=== PATIENT | male | born 1980 | race Caucasian/White ===

== ENCOUNTER 2018-09-19 09:42 | Inpatient (IN) | payer OTHER ==
[2018-09-19] MEDS ORDERED: NS 1,000 ML IV ONE (09:51)
--- NOTE | 2018-09-19 10:23 | EDPHY ---
H & P Stated Complaint: n/v/d since 09/13. Time Seen by Provider: 09/19/18 09:51 HPI/ROS: CHIEF COMPLAINT: Dizziness, bloody diarrhea History by patient HISTORY OF PRESENT ILLNESS: 38-year-old man with no significant medical history presents complaining of persistent bloody diarrhea x3 weeks. Patient was referred in from the GI clinic because of concerns of dehydration and electrolyte abnormalities. Last night when the patient got up to go to the bathroom he was so dizzy he fell. He is not sure if he lost consciousness. He has been feeling very dizzy this morning however this has currently resolved. Patient states that 3 weeks ago he began having bloody diarrhea and he saw his primary care physician who did stool studies. He was started on Flagyl which he said made him developed nausea and vomiting which she had not had before. He has taken a week the Flagyl with no change in his symptoms. Because of the vomiting and diarrhea he had to go to the ER 5 days ago which time they did abdominal CT scan which showed colitis. Today the patient went in to see GI specialist that he has an appointment for a colonoscopy pending in 2 days. He continues to have persistent bloody diarrhea more times than he can count. He is able to eat and drink. He has lost 20 lb over the past 3 weeks. There is no family history of inflammatory bowel disease. He denies any abdominal pain. Since he stopped Flagyl his nausea vomiting has resolved. REVIEW OF SYSTEMS: As in HPI, and all other systems reviewed and are negative Source: Patient - Personal History Current Tetanus/Diphtheria Vaccine: Unsure Current Tetanus Diphtheria and Acellular Pertussis (TDAP): Unsure - Medical/Surgical History Other PMH: denies - Social History Smoking Status: Former smoker - Physical Exam Exam: General Appearance: Alert, nontoxic-appearing. Eyes: Pupils equal and round, extraocular movements intact, no pallor or injection. Mouth: Mucous membranes moist. Pharynx clear Respiratory: Normal, effort, lungs are clear to auscultation. No wheezes, rales or rhonchi. Cardiovascular: Regular rate and rhythm. S1, S2, no murmurs, gallops or rubs appreciated Gastrointestinal: bowel sounds decreased, Abdomen is soft and nondistended nontender, no masses Back: No CVA tenderness, no bony tenderness Neurological: Awake, alert and oriented x 3, no pronator drift, normal gait, no pronator drift Skin: Warm and dry, no rashes. Musculoskeletal: No deformities or tenderness. Extremities: full range of motion, no edema Psychiatric: Patient has normal affect, there is no agitation. Constitutional: Initial Vital Signs Temperature (C) 36.5 C 09/19/18 09:49 Heart Rate 92 09/19/18 09:49 Respiratory Rate 16 09/19/18 09:49 Blood Pressure 117/83 H 09/19/18 09:49 O2 Sat (%) 99 09/19/18 09:49 O2 Delivery Mode Room Air Allergies/Adverse Reactions: No Known Allergies Allergy (Unverified 09/19/18 09:53) Home Medications: Medication Instructions Recorded Flagyl 09/19/18 Metoclopramide 09/19/18 Ondansetron Odt 09/19/18 Potassium Chloride 09/19/18 Promethazine HCl 09/19/18 Medical Decision Making - Diagnostics EKG Interpretation: Normal sinus rhythm at a rate in 91 with normal axis, prolonged QT, inverted T- waves in the inferior leads and U waves present. Impression: Abnormal EKG. ED Course/Re-evaluation: 38-year-old male in with ongoing bloody diarrhea. I reviewed the patient's old records. His stool studies were positive for entamoeba. Patient did have a trip to [place] complicated by diarrhea for months ago in May. He was given IV fluids and labs were checked. Labs are notable for low potassium of 1.8. CBC and magnesium level were sent to [facility] and is pending at time of dictation. Patient was started on IV and oral potassium repletion. An ECG was done which showed normal sinus rhythm at a rate in 91 with prolonged QT, inverted T-waves in the inferior leads and U-waves. Given EKG findings magnesium repletion was ordered while awaiting magnesium results. Patient be transferred to [facility] for ongoing electrolyte repletion and further evaluation. I discussed the case with MILLER Magana, on-call for the hospitalist. While awaiting ambulance transport magnesium results came back at 2.3 which is normal. Magnesium infusion was stopped. - Data Points Laboratory Results: Laboratory Results 09/19/18 10:00 09/19/18 09/19/18 09/19/18 10:48 10:26 10:00 WBC RBC Hgb POC Hgb 16.7 gm/dL gm/dL (13.7-17.5) Hct POC Hct 49 % % (40-51) MCV MCH MCHC RDW Plt Count POC Sodium 132 mEq/L L mEq/L 133 mEq/L L mEq/L (135-145) (135-145) POC Potassium < 2.0 mEq/L L* mEq/L 1.8 mEq/L L* mEq/L (3.3-5.0) (3.3-5.0) POC Chloride 88 mEq/L L mEq/L 88.0 mEq/L L mEq/L (97-110) (97-110) POC Total CO2 29 mEq/L mEq/L (22-31) POC BUN 4 mg/dL L mg/dL 5 mg/dL L mg/dL (7-23) (7-23) POC Creatinine 0.8 mg/dL mg/dL 1.1 mg/dL mg/dL (0.7-1.3) (0.7-1.3) POC Glucose 97 mg/dL mg/dL 101 mg/dL H mg/dL (70-100) (70-100) POC Calcium 8.6 mg/dL mg/dL (8.5-10.4) Magnesium 2.3 mg/dL mg/dL (1.6-2.3) 09/19/18 10:00 WBC 18.12 10^3/uL H 10^3/uL (3.80-9.50) RBC 5.13 10^6/uL 10^6/uL (4.40-6.38) Hgb 15.8 g/dL g/dL (13.7-17.5) POC Hgb Hct 43.5 % % (40.0-51.0) POC Hct MCV 84.8 fL fL (81.5-99.8) MCH 30.8 pg pg (27.9-34.1) MCHC 36.3 g/dL g/dL (32.4-36.7) RDW 12.5 % % (11.5-15.2) Plt Count 642 10^3/uL H 10^3/uL (150-400) POC Sodium POC Potassium POC Chloride POC Total CO2 POC BUN POC Creatinine POC Glucose POC Calcium Magnesium Medications Given: Potassium Chloride (Potassium Cl 10 Meq (Premix)) 100 mls @ 100 mls/hr IV EDNOW ONE Stop: 09/19/18 11:56 Last Admin: 09/19/18 11:09 Dose: 100 mls Magnesium Sulfate/Dextrose (Magnesium Sulf 1 Gm (Premix)) 100 mls @ 100 mls/hr IV EDNOW ONE Stop: 09/19/18 11:57 Last Admin: 09/19/18 11:33 Dose: 100 mls Discontinued Medications Sodium Chloride (Ns) 1,000 mls @ 0 mls/hr IV EDNOW ONE; Wide Open PRN Reason: Protocol Stop: 09/19/18 09:52 Last Admin: 09/19/18 10:07 Dose: 1,000 mls Potassium Chloride (Potassium Chloride Oral Liquid) 20 meq PO EDNOW ONE Stop: 09/19/18 11:04 Last Admin: 09/19/18 11:39 Dose: 20 meq Point of Care Test Results: Chemistry 09/19/18 09/19/18 10:48 10:26 POC Sodium 132 mEq/L L mEq/L 133 mEq/L L mEq/L (135-145) (135-145) POC Potassium < 2.0 mEq/L L* mEq/L 1.8 mEq/L L* mEq/L (3.3-5.0) (3.3-5.0) POC Chloride 88 mEq/L L mEq/L 88.0 mEq/L L mEq/L (97-110) (97-110) POC Total CO2 29 mEq/L mEq/L (22-31) POC BUN 4 mg/dL L mg/dL 5 mg/dL L mg/dL (7-23) (7-23) POC Creatinine 0.8 mg/dL mg/dL 1.1 mg/dL mg/dL (0.7-1.3) (0.7-1.3) POC Glucose 97 mg/dL mg/dL 101 mg/dL H mg/dL (70-100) (70-100) POC Calcium 8.6 mg/dL mg/dL (8.5-10.4) ISTAT H&H 09/19/18 10:48 POC Hgb 16.7 gm/dL gm/dL (13.7-17.5) POC Hct 49 % % (40-51) Departure - Departure Disposition: [facility] Inpatient Acute Clinical Impression: Hypokalemia due to loss of potassium, Acute dehydration, Prolonged QT interval Diarrhea Qualifiers: Diarrhea type: unspecified type Qualified Code(s): R19.7 - Diarrhea, unspecified Condition: Fair
[2018-09-19] MEDS ORDERED: POTASSIUM Cl (KCl) 50 ML IV ONE ×2 (10:45→10:46)
[2018-09-19] MEDS ORDERED: POTASSIUM Cl (KCl) 100 ML IV ONE ×2 (10:57)
[2018-09-19] MEDS ORDERED: MAGNESIUM SULF 1 GM/DEXTROSE 100 ML IV ONE (10:58)
[2018-09-19] MEDS ORDERED: NS 1,000 ML IV SCH (11:00)
[2018-09-19] MEDS ORDERED: POTASSIUM CL 20 MEQ/15 ML UDCUP PO ONE ×2 (11:03→22:15)
[2018-09-19] MEDS ORDERED: PROTOCOL POTASSIUM 1 DOSE MISC PRN (13:31)
[2018-09-19] MEDS ORDERED: PROMETHAZINE HCL 25 MG/ML INJ IVP PRN (15:09)
[2018-09-19] MEDS ORDERED: ACETAMINOPHEN 325 MG TAB PO PRN (15:09)
[2018-09-19] MEDS ORDERED: POTASSIUM CL 10 MEQ TAB PO ONE (15:47)
--- NOTE | 2018-09-19 15:49 | GHP ---
DATE OF ADMISSION: 09/19/2018 CHIEF COMPLAINT: Bloody diarrhea and syncope. HISTORY: The patient is a 38-year-old male, who had acute onset of bloody diarrhea on September 03. He was seen in an emergency room 5 days ago and had a CT scan of the abdomen that showed colitis. A GI PCR panel was sent showing amoeba but C difficile is negative. He was scheduled for colonoscopy with GI in 2 days and was seen in the GI clinic today for followup. The GI physician felt he was ext remely ill and sent him to the emergency room. He is very dehydrated and dizzy. He has 20-30 bloody bowel movements per day. It is worse at night. He has abdominal cramping with the stools. He took a course of Flagyl, was only able tolerate 6 days of antibiotic, and it was actually making him wors e so he quit it. Last night, he had a full-on syncopal event witnessed by his . This was accomp anied by an episode of stool incontinence. He traveled to [place] in May and did get a transient GI bug during that trip, but this was nonbloody and had completely resolved prior to the current onset o f symptoms. PAST MEDICAL HISTORY: Negative. MEDICATIONS: Please see computer record for full detailed list. ALLERGIES: No known drug allergies. SOCIAL HISTORY: He does chew tobacco but has stopped since onset of illness. Also drinks 6 beers ev but has also not recently been doing that due to his current illness. He works for a [employer]. He lives with his . REVIEW OF SYSTEMS: Complete review of systems obtained. Review of systems negative regarding consti tutional, HEENT, GI, pulmonary, cardiovascular, , hematology, skin, musculoskeletal, endocrine, psy ch, except for positives and negatives as noted in HPI. FAMILY HISTORY: Negative for IBD. PHYSICAL EXAMINATION: GENERAL: Well-developed, well-nourished male, in no acute distress. VITAL SI GNS: Temperature is 36.8, pulse 72, blood pressure 111/72, saturating 95% on room air. EYES: Sabina l conjunctivae. Pupils equal and react to light. ENT: Normal ears and nose. Hearing intact. Norm al teeth. Oropharynx moist. NECK: Trachea midline. No thyromegaly. CHEST: Normal respiratory ef fort. Lungs clear to bilaterally. CARDIOVASCULAR: Regular rhythm. No murmur. No extremity edema. ABDOMEN: Soft, nontender. No hepatosplenomegaly. SKIN: Warm, dry, intact, without rash. MUSCUL OSKELETAL: No cyanosis or clubbing. Strength 5/5 upper and lower extremities. NEURO: Cranial nerv es intact. Normal sensation to light touch. PSYCHIATRIC: Alert and oriented x3. Normal mood and a ffect. Normal judgment and insight. Normal memory. LABORATORY DATA: White count 18.12, hematocrit 43.5, platelets 642. Sodium 132, potassium 1.8, chlo ride 88, bicarb 29, BUN 4, creatinine 0.8, glucose 97. Magnesium is 2.3. EKG viewed by me: My personal interpretation is normal sinus rhythm. QTc is 557 with U waves. This case was personally discussed with Dr. Dave Yancey and Dr. Huy Arnett regarding infectious diseas e and GI workup that is undergoing. ASSESSMENT/PLAN: 1. Colitis with bloody diarrhea. Stool sample from September 11 is positive for amoeba. I have spo yvonne with Dr. Arnett. Infectious Disease will see him in consultation. If this is not felt to be a pat hogenic finding, then Dr. Yancey does plan to proceed with colonoscopy. 2. Critical hypokalemia with electrocardiogram changes. We will follow serial potassiums especially the next 24-48 hours with aggressive repletion until it gets out of the critical range. Will follow on telemetry. 3. Prolonged QT interval. I suspect this is due to his severe electrolyte disturbance. Will rechec k an electrocardiogram in the morning once potassium is improved. 4. Leukocytosis. I suspect this is reactive. We will continue to follow. 5. Syncope. I suspect this is due to a combination of hypovolemia, vagal response, and he may have also had an arrhythmia due to his hypokalemia. Treatment will be supportive will continue to watch o n the monitor as above. CODE STATUS: Full. ADMISSION STATUS: We will admit to observation and reevaluate tomorrow regarding ongoing need for ho spitalization. DEEP VEIN THROMBOSIS PROPHYLAXIS: He is low risk for DVT and high risk for worsening bleeding, so we will prescribe early ambulation. /[id number]/MODL
[2018-09-19] MEDS: ONDANSETRON 4 MG/2 ML VIAL IVP PRN (16:11)
[2018-09-19] MEDS ORDERED: POTASSIUM CL 20 MEQ TAB PO ONE (21:49)
[2018-09-20] MEDS: POTASSIUM Cl (KCl) 40 MEQ in NS 1,000 ML IV SCH (02:17)
[2018-09-20 04:29] LABS: PLATELET COUNT 447 10^3/uL (150-400)
--- NOTE | 2018-09-20 06:19 | GCON ---
INFECTIOUS DISEASE CONSULTATION DATE OF CONSULTATION: 09/19/2018 REFERRING PHYSICIAN: Yanna Vines MD REASON FOR CONSULTATION: Bloody diarrhea with concerns for amoebic dysentery. HISTORY OF PRESENT ILLNESS: The patient is a 38-year-old male without significant past medical history, who I am asked to see in consultation for bloody diarrhea with concern for amoebic dysentery. The patient developed onset of bloody diarrhea beginning on September 03. The patient had multiple episodes of bloody diarrhea with crampy abdominal pain. He did not have significant fever or chills other than he did awake in the night 1 time with a cold sweat suggesting subjective fever. This was not a continuous phenomena. The patient was evaluated by his primary care physician on 09/11/2018. At that time, white blood cell count was elevated at 14.5. Stool O and P were performed with direct specimen being concerning for presence of Entamoeba species; this was not confirmed on Trichrome staining. The same day, a stool pathogen panel by PCR testing was performed, which showed no organisms; this PCR panel includes Entamoeba histolytica. The patient subsequently received treatment with metronidazole which was associated with significant nausea and vomiting, and did not lead to any improvement in his bloody diarrhea. He discontinued this after 6 days due to intolerance related to ongoing nausea and vomiting. He was seen in the [facility] Emergency Department on 09/14/2018, at which point in time a CT scan of the abdomen and pelvis was performed, which showed findings consistent with colitis with normal-appearing small bowel. He does believe he has also had mucus in the stool. The patient had traveled to [facility] in May and did have traveler's diarrhea while there. Yesterday, his diarrhea was occurring approximately 20 times per day. He was not tolerating oral intake well and had a syncopal event. Plans were in place for colonoscopy in 2 days, but in his followup today, he was felt to need further evaluation based on signs and symptoms of dehydration and recent syncopal episode. In the emergency department today, he was noted to have significant hypokalemia with a potassium of 1.8 at time of presentation. This is now improved to 2.9. Earlier today and Entamoeba Histolytica antigen was performed. Given concerns about increased risk of perforation if colonoscopy is performed with amoebic colitis, I have been asked to see the patient to assist in his ongoing management. PAST MEDICAL HISTORY: Unremarkable. PAST SURGICAL HISTORY: Tonsillectomy. CURRENT MEDICATIONS: Potassium replacement, IV rehydration, Phenergan as needed , Zofran as needed. ALLERGIES: No known drug allergies. SOCIAL HISTORY: The patient typically chews tobacco. He drinks a six-pack on the weekends. No drug use. He works in a desk based job. No travel outside of prior trip to [place]. No ill contacts. The patient denies any HIV risk factors. FAMILY HISTORY: Unremarkable. No family history of inflammatory bowel disease. REVIEW OF SYSTEMS: Outside that noted in the HPI, the remainder of 10-system review is unremarkable except for significant weight loss associated with the above symptoms. No history of eye pain or redness; no history of oral ulcerations. PHYSICAL EXAMINATION: VITAL SIGNS: Temperature 37.2, heart rate 100, respiratory rate 18, blood pressure 109/66, oxygen saturation 99% on room air. GENERAL: Patient is a thin male in no acute distress. He appears nontoxic. HEENT: There is no scleral icterus, conjunctival injection, or conjunctival petechiae. Oropharynx shows slightly dry mucous membranes. No oral ulcerations present. No nasal discharge. No tenderness over the sinuses. NECK : Supple, without palpable lymphadenopathy or thyromegaly. CHEST: Clear to auscultation bilaterally without adventitious sounds. Respiratory effort is normal. CARDIOVASCULAR: Tachycardic, without murmurs, gallops, or rubs. ABDOMEN: Soft, nontender, nondistended. Bowel sounds are present. No palpable organomegaly. MUSCULOSKELETAL: No cyanosis, clubbing, or edema. SKIN : No rashes present. No stigmata of endocarditis. Skin is warm and dry to touch. NEUROLOGIC: The patient is alert and interacts appropriately with examiner. Cranial nerves 2-12 are grossly intact. Sensation is grossly intact. Muscle tone and bulk are normal. LABORATORY DATA: White blood cell count 18.1, hematocrit 43.5, platelets 642, serum creatinine 0.8, potassium 2.9, bicarbonate 29, AST 15, ALT 37, bilirubin 0.9, alkaline phosphatase 64, stool O and P from 09/11/2018, as previously outlined; stool O and P from today is pending. Entamoeba Histolytica antigen is pending. IMPRESSION: Bloody diarrhea: The patient has bloody diarrhea now for approximately 2.5 weeks, which did not improve with treatment of metronidazole. Amoeba seen on ova and parasites are not diagnostic of amoebic colitis/ dysentery given ova and parasites typically cannot distinguish between pathogenic and non-pathogenic amoeba unless red blood cells are being in correction are seen being ingested. Given the patient's negative stool PCR test for Entamoeba Histolytica, suspect this was likely a non-pathogenic variety as the sensitivity of PCR should be higher than ova and parasites. Recommend repeating stool pathogen PCR at this point in time to ensure Entamoeba Histolytica PCR remains negative and no other pathogens isolated ( Entamoeba Histolytica antigen will take a longer amount of time when compared to gastrointestinal pathogen PCR testing). If Entamoeba Histolytica PCR is negative, I think can proceed with colonoscopy as outlined to assess for other etiologies such as inflammatory bowel disease, which is of consideration given chronicity of symptoms and concomitant thrombocytosis consistent with chronic inflammatory state. Plan observation off antimicrobial therapy. RECOMMENDATIONS: 1. Repeat stool pathogen panel, which includes Entamoeba Histolytica by PCR. 2. Observe off antibiotics. 3. If repeat stool panel is negative in terms of diagnostic etiology including Entamoeba Histolytica, think proceeding with colonoscopy would be next diagnostic step. 4. Follow up repeat stool O and P as available. Thank you for this consultation. We will continue to follow the patient with you. /[id number]/MODL MTDD
[2018-09-20] MEDS ORDERED: POTASSIUM CL 10 MEQ TAB PO ONE ×3 (07:28→23:00)
[2018-09-20] MEDS ORDERED: POTASSIUM CL 20 MEQ/15 ML UDCUP PO ONE (07:45)
[2018-09-20] MEDS ORDERED: PROTOCOL K PHOSPHATE 1 DOSE IV PRN (09:29)
--- NOTE | 2018-09-20 10:50 | GCON ---
REFERRING PHYSICIAN: Yanna Vines MD REASON FOR CONSULTATION: Abdominal pain and bloody diarrhea. CHIEF COMPLAINT: Abdominal pain and bloody diarrhea. HISTORY OF PRESENT ILLNESS: Briefly, the patient is a pleasant 38-year-old male who has no significa nt past medical history who has been admitted to the hospital for evaluation of dysentery. He report s he was in his usual state of health until September 03. On that day developed acute, urgent, blood y, painful diarrhea symptoms. This was associated with some subjective fevers and chills, although h e does not admit to measuring any true documented fever. He reports no sick contacts or unusual food choices. He does have recent travel history to [place], but this was 3 months prior. On August t, of note, he reports he felt totally well. He has had multiple stool and laboratory tests during t he last 2 to 3 week period of time of this illness. There has been some concern for the presence of Entamoeba species. He reports that he has approximately 20-30 bowel movements a day that have been u rgent, loose, and bloody. There is a significant amount of abdominal cramping associated with these symptoms. He denies any nausea, vomiting. He is able to tolerate p.o., but he reports that it leads to significant and rapid recurrence of diarrhea. He has no personal or family history of similar complaints. He denies any personal or family history of inflammatory bowel disease or colon cancer. PAST MEDICAL HISTORY: Unremarkable. PAST SURGICAL HISTORY: Tonsillectomy. OUTPATIENT MEDICINES: None. ALLERGIES: None. SOCIAL HISTORY: He chews tobacco. He drinks alcohol on the weekends. There is no history of drug u se. He had a recent trip to [place], where he did have a brief period of traveler's diarrhea. FAMILY HISTORY: Negative for inflammatory bowel disease. REVIEW OF SYSTEMS: A complete review of systems was undertaken with the patient. The pertinent posi tives and negatives are detailed in the history of present illness. PHYSICAL EXAM: GENERAL: This is a well-developed male in no apparent distress. HEENT: His pupils are equal, round, reactive to light and accommodation. Sclerae are nonicteric. His oropharynx is cl ear. NECK: Supple without lymphadenopathy. HEART: Regular without murmur, normal rate and rhythm. ABDOMEN: Soft with minimal tenderness throughout. He has hyperactive bowel sounds. EXTREMITIES: Free of cyanosis, clubbing, and edema. NEURO: Grossly nonfocal. PSYCH: Normal mood and affect. SKIN: Without lesions. LABORATORY TESTING: White count of 12.5, hemoglobin of 10.6, hematocrit of 29.8, platelet count of 4 47. Sodium of 134, potassium of 3.4, chloride of 105, bicarb of 26, BUN of 4, creatinine of 0.8. St ool testing is currently pending. Outpatient stool testing was negative apart from microscopic exam, which revealed Entamoeba species. IMPRESSION/RECOMMENDATIONS: The patient has had the acute onset of dysentery. The most common etiol ogy for such presentation is infectious. His stool infectious workup has been somewhat equivocal at this point, but they are clues considering Entamoeba. It is also possible that his symptoms could be related to inflammatory bowel disease, ischemic bowel, malignancy, etc. Pending the results of a st ool infectious evaluation, will need to consider endoscopic evaluation. /[id number]/MODL
[2018-09-20] MEDS ORDERED: K PHOS 10 MMOL in D5W 250 ML IV ONE (12:00)
--- NOTE | 2018-09-20 12:15 | ASMTCMCOM ---
CM Note CM Note Notes: Pts case discussed in tx rounds. Pt is a 38 y/o man admitted for hypokalemia, bloodied diarrhea and dehydration. ID and GI are consulting. Needs are TBD at this time. CM to follow. Plan: TBD Date Signed: 09/20/2018 12:15 PM Electronically Signed By:ROBEL Hanson
[2018-09-20] MEDS ORDERED: PEG 3350/NA SULF,BICARB,CL/KCL (GAVILYTE-G) 4000 ML BTL PO ONE (15:28)
--- NOTE | 2018-09-20 15:40 | HOSPPROG ---
Hospitalist Progress Note Assessment/Plan: * Colitis with bloody diarrhea - infectious vs. UC -ruling out infection prior to proceeding with colonoscopy * Amoeba in stool -E. histolytica antigen pending - definitive test -suspect non-pathogenic finding -PCR negative - this is more sensitive than O+P * Acute blood loss anemia -continue to follow H/H * Critical hypokalemia -improved - continue to follow * Prolonged QT -improved with electrolyte repletion * Leukocytosis -reactive * Syncope due to hypovolemia Subjective: severely bad night with persistent bloody diarrhea all night long Objective: Vital Signs Temp Pulse Resp BP Pulse Ox 36.8 C 96 16 93/73 L 100 09/20/18 12:00 09/20/18 12:00 09/20/18 12:00 09/20/18 12:00 09/20/18 12:00 Microbiology 09/19/18 17:39 Gastrointestinal Tract Panel (PCR) - Final Stool No Organism Detected Laboratory Results 09/20/18 03:45 09/20/18 03:45 09/19/18 09/20/18 09/21/18 05:59 05:59 05:59 Intake Total 4300 Balance 4300 EKG viewed, my personal interpretation is - improved QTc tele - NSR - Physical Exam Constitutional: no apparent distress, appears nourished, not in pain Cardiovascular: regular rate and rhythym, no murmur, rub, or gallop Respiratory: no respiratory distress, no rales or rhonchi, clear to auscultation Gastrointestinal: normoactive bowel sounds, soft, non-tender abdomen, no palpable masses Skin: no rashes or abrasions, no fluctuance, no induration Neurologic: AAOx3, sensation intact bilaterally Psychiatric: interacting appropriately, not anxious, not encephalopathic, thought process linear ICD10 Worksheet Patient Problems: Problems Problem Status Onset Hypokalemia due to loss of potassium Acute Acute dehydration Acute Diarrhea Acute Prolonged QT interval Acute
--- NOTE | 2018-09-20 17:08 | PDMN ---
Medical Necessity Medical necessity: Change to inpt as of 09/20/18 @ 1232. Pt meets inpt criteria per MD order and [facility] M-[id number], Gastrointestinal Bleeding, Lower. Pt admitted w/ colitis w/bloody diarrhea, hypokalemia w/EKG changes, leukocytosis, and syncope. Bloody diarrhea persists today, hypotensive 93/73, acute blood loss anemia (H/H 15.8/43.5 yesterday to 10.6/29.8 today). IVF, will likely need colonoscopy, tele monitoring for EKG changes, electrolyte replacement, follow H/ H. Anticipate>2MN for further eval/management of above.
--- NOTE | 2018-09-20 21:22 | CPEKG ---
Test Reason : OPEN Blood Pressure : / mmHG Vent. Rate : 095 BPM Atrial Rate : 096 BPM P-R Int : 146 ms QRS Dur : 078 ms QT Int : 354 ms P-R-T Axes : 070 082 -05 degrees QTc Int : 445 ms Sinus rhythm Nonspecific ST and T wave abnormality Confirmed by Reagan Lyman ([id number]) on 09/20/2018 9:21:51 PM Referred By: Confirmed By:Reagan Lyman
[2018-09-21] MEDS: POTASSIUM Cl (KCl) 40 MEQ in NS 1,000 ML IV SCH (01:49)
[2018-09-21 05:24] LABS: PLATELET COUNT 539 10^3/uL (150-400)
[2018-09-21] MEDS ORDERED: LR 1,000 ML IV ONE (06:41)
--- NOTE | 2018-09-21 08:05 | PDANEPAE ---
ANE History of Present Illness hematachezia, here for colonoscopy ANE Past Medical History - Cardiovascular History Hx Hypertension: No Hx Arrhythmias: No Hx Chest Pain: No Hx Coronary Artery / Peripheral Vascular Disease: No - Pulmonary History Hx Oxygen in Use at Home: No Hx Sleep Apnea: No Sleep Apnea Screening Result - Last Documented: Negative - Endocrine History Hx Diabetes: No ANE Review of Systems Review of Systems: - Exercise capacity Exercise capacity: >=4 METS ANE Patient History - Allergies Allergies/Adverse Reactions: metronidazole [From Flagyl] Allergy (Mild, Unverified 09/19/18 15:16) Other-Enter Comments - Home Medications Home Medications: Metoclopramide 10 mg PO TIDMEAL PRN 09/19/18 [Last Taken 09/17/18] Multivitamins [Multivitamin (*)] 1 each PO DAILY 09/19/18 [Last Taken 09/13/18] Ondansetron [Ondansetron Odt] 8 mg PO Q8H PRN 09/19/18 [Last Taken 09/17/18] Potassium Cl [Klor-Con 20 meq (*)] 10 meq PO DAILY 09/19/18 [Last Taken 09/16/18 ] Promethazine HCl [Phenergan 25mg (*)] 25 mg PO Q6H PRN 09/19/18 [Last Taken 03/30] - NPO status NPO Status: no food or drink >8 hours NPO Since - Liquids (Date): 09/21/18 NPO Since - Liquids (Time): 00:00 NPO Since - Solids (Date): 09/21/18 NPO Since - Solids (Time): 00:00 - Anes Hx Anes Hx: no prior problems - Smoking Hx Smoking Status: Former smoker - Alcohol Use Alcohol Use: Occasionally - Family Anes Hx Family Anes Hx: none ANE Labs/Vital Signs - Labs Result Diagrams: 09/21/18 03:56 09/21/18 03:56 - Vital Signs Blood Pressure: 109/66 Heart Rate: 97 Respiratory Rate: 16 O2 Sat (%): 96 Height: 177.8 cm Weight: 62.142 kg ANE Physical Exam - Airway Neck exam: FROM Mallampati Score: Class 2 Mouth exam: normal dental/mouth exam - Pulmonary Pulmonary: no respiratory distress, clear to auscultation - Cardiovascular Cardiovascular: regular rate and rhythym, no murmur, rub, or gallop - ASA Status ASA Status: I ANE Anesthesia Plan Anesthesia Plan: GA with mask Total IV Anesthesia: Yes
[2018-09-21] MEDS ORDERED: PROPOFOL/EMULSION 500 MG/50 ML BOTTLE IV ONE (08:08)
[2018-09-21] MEDS ORDERED: NALOXONE HCL 0.4 MG/ML INJ IVP PRN (08:25)
--- NOTE | 2018-09-21 08:28 | GIREPORT ---
Formerly [facility] - Endoscopy Department Patient Name: Rudi Jacob Procedure Date: 09/21/2018 7:51 AM Patient Type: Inpatient Attending MD/ ER Physician: Dave Yancey MD Procedure: Colonoscopy Indications: Generalized abdominal pain, Clinically significant diarrhea of unexplai cj origin, Hematochezia Providers: aDve Yancey MD Medicines: Sedation Required Anesthesia Staff Assistance Complications: No immediate complications. Description of Procedure: After obtaining informed consent, the scope was passed under direct vis ion. Throughout the procedure, the patient's blood pressure, pulse, and oxyg en saturations were monitored continuously. The Colonoscope with irrigatio n channel was introduced through the anus and advanced to the cecum, identified by appendiceal orifice and ileocecal valve. The colonoscopy was performed without difficulty. The patient tolerated the procedure well. The quality of the bowel preparation was not adequate to identify polyps 6 mm and larger in size. Findings: Diffuse severe inflammation characterized by congestion (edema), erosio ns, erythema, friability, granularity and confluent ulcerations was found i n the entire colon. Biopsies were taken with a cold forceps for histology. Estimated Blood Loss: Estimated blood loss: none. Post Op Diagnosis: - Preparation of the colon was inadequate. - Diffuse severe inflammation was found in the entire examined colon consistent with ulcerative colitis. Biopsied. Recommendation: - Return patient to hospital [facility] for ongoing care. - Await pathology results. - Given negative stool infectious work-up, will start empiric IBD thera py with IV solumedrol and oral mesalamine. Attending Participation: I personally performed the entire procedure. Dave Yancey MD Dave Yancey MD 09/21/2018 8:28:34 AM This report has been signed electronicallyDaus Bc MD Number of Addenda: 0 Note Initiated On: 09/21/2018 7:51 AM Total Procedure Duration Time 0 hours 11 minutes 16 seconds [email or web address]
--- NOTE | 2018-09-21 08:38 | SUROPNOTE ---
[facility] Operative Report - Surgery BRIEF COLON NOTE Indication: hematochezia, diarrhea Medication: per anesthesia Complications: none acutely Findings: - Diffuse, severe, macias colitis - multiple bx's done IMPRESSION/RECS 1. Colitis - DDx is ischemic, inflammatory, infectious - overall suspect IBD, await bx - will start empiric IBD therapy with IV solumedrol and po mesalamine - likely will need another 24-48hrs hospital stay to be sure colitis is improving - will follow, Dr. Caicedo to assume the GI service at 1700 on 09/21/18
--- NOTE | 2018-09-21 09:23 | POSTANESTH ---
Post Anesthetic Evaluation Cardiovascular Status: Normal, Stable, Similar to Pre-Op Cond Respiratory Status: Normal, Stable, Similar to Pre-op Cond. Level of Consciousness/Mental Status: Can Participate in Eval, Alert and Oriented Pain Control: Adequate, Prn Tx Ordered Nausea/Vomiting Control: Adequate, Prn Tx Ordered Complications Possibly Related to Anesthesia: None Noted
[2018-09-21] MEDS: methylPREDNISolone SOD SUCC 40 MG/ML VIAL IVP SCH ×3 (10:14→22:08)
[2018-09-21] MEDS: MESALAMINE 800 MG TAB.DR PO SCH ×3 (10:14→22:07)
[2018-09-21 11:44] LABS: CYCL RESULT See Comments
--- NOTE | 2018-09-21 11:47 | ASMTCMCOM ---
CM Note CM Note Notes: Pts case discussed in tx rounds. Pt had a colonoscopy this AM. Pt most likely has ulcerative colitis. Awaiting from final results for a definitive diagnosis. Pt will be prescribed steroids to help w/ symptom management. Pt will most likely d/c independent when medically stable. No therapies ordered at this time. CM available for changes. Plan: Independent Date Signed: 09/21/2018 11:46 AM Electronically Signed By:ROBEL Hanson
--- NOTE | 2018-09-21 16:06 | HOSPPROG ---
Hospitalist Progress Note Assessment/Plan: * Colitis with bloody diarrhea - colonoscopy most c/w new diagnosis UC - biopsies pending -IV steroids + mesalamine * Amoeba in stool -suspect non-pathogenic finding -PCR negative - this is more sensitive than O+P * Acute blood loss anemia -continue to follow H/H * Critical hypokalemia -improved - continue to follow * Prolonged QT -improved with electrolyte repletion * Leukocytosis -reactive * Syncope due to hypovolemia Subjective: Finally better today Objective: Vital Signs Temp Pulse Resp BP Pulse Ox 36.8 C 106 H 16 111/64 96 09/21/18 15:37 09/21/18 15:37 09/21/18 15:37 09/21/18 15:37 09/21/18 15:37 Laboratory Results 09/21/18 03:56 09/21/18 03:56 09/20/18 09/21/18 09/22/18 05:59 05:59 05:59 Intake Total 4050 895 Balance 4050 895 GI report reviewed from colonscopy - severe diffuse colitis c/w UC case d/w Dr. Angelina Mclean ID - this is not infectious colitis - Physical Exam Constitutional: no apparent distress, appears nourished, not in pain Cardiovascular: regular rate and rhythym, no murmur, rub, or gallop Respiratory: no respiratory distress, no rales or rhonchi, clear to auscultation Gastrointestinal: normoactive bowel sounds, soft, non-tender abdomen, no palpable masses Skin: no rashes or abrasions, no fluctuance, no induration Neurologic: AAOx3, sensation intact bilaterally Psychiatric: interacting appropriately, not anxious, not encephalopathic, thought process linear ICD10 Worksheet Patient Problems: Problems Problem Status Onset Hypokalemia due to loss of potassium Acute Acute dehydration Acute Diarrhea Acute Prolonged QT interval Acute
[2018-09-22 04:49] LABS: PLATELET COUNT 529 10^3/uL (150-400)
[2018-09-22] MEDS: methylPREDNISolone SOD SUCC 40 MG/ML VIAL IVP SCH ×3 (06:42→21:55)
[2018-09-22] MEDS: MESALAMINE 800 MG TAB.DR PO SCH ×3 (08:41→21:55)
--- NOTE | 2018-09-22 09:51 | SOAPPROG ---
SNOW Progress Note Assessment/Plan: Assessment: Colitis suspect UC good response to steroids so far Plan: Await biopsy results Recommend another 24 hours of solumedrol and if continues to do well then change to prednisone possible tomorrow 09/22/18 09:48 Subjective: CC Bloody diarrhea Much less diarrhea and less bleeding Abd pain better Objective: Vital Signs Temp Pulse Resp BP Pulse Ox 36.7 C 88 21 H 115/71 96 09/22/18 08:07 09/22/18 08:07 09/22/18 08:07 09/22/18 08:07 09/22/18 08:07 Laboratory Results 09/22/18 03:58 09/22/18 03:58 09/21/18 09/22/18 09/23/18 05:59 05:59 05:59 Intake Total 4050 1695 Balance 4050 1695 Physical Exam - Physical Exam General Appearance: alert Respiratory: lungs clear Cardiac/Chest: regular rate, rhythm Abdomen: non-tender, soft ICD10 Worksheet Patient Problems: Problems Problem Status Onset Acute dehydration Acute Diarrhea Acute Hypokalemia due to loss of potassium Acute Prolonged QT interval Acute
--- NOTE | 2018-09-22 15:54 | HOSPPROG ---
Hospitalist Progress Note Assessment/Plan: * Colitis with bloody diarrhea - colonoscopy most c/w new diagnosis UC - biopsies pending -IV steroids + mesalamine * Amoeba in stool -suspect non-pathogenic finding -PCR negative - this is more sensitive than O+P * Acute blood loss anemia -continue to follow H/H * Critical hypokalemia -improved - continue to follow * Prolonged QT -improved with electrolyte repletion * Leukocytosis -reactive * Syncope due to hypovolemia Subjective: Much much better with IVF steroids. Only 3 BM overnight rather than 50 Objective: Vital Signs Temp Pulse Resp BP Pulse Ox 36.8 C 92 16 106/64 98 09/22/18 11:05 09/22/18 11:05 09/22/18 11:05 09/22/18 11:05 09/22/18 11:05 Laboratory Results 09/22/18 03:58 09/22/18 03:58 09/21/18 09/22/18 09/23/18 05:59 05:59 05:59 Intake Total 4050 1695 Balance 4050 1695 - Physical Exam Constitutional: no apparent distress, appears nourished, not in pain Cardiovascular: regular rate and rhythym, no murmur, rub, or gallop Respiratory: no respiratory distress, no rales or rhonchi, clear to auscultation Gastrointestinal: normoactive bowel sounds, soft, non-tender abdomen, no palpable masses Skin: no rashes or abrasions, no fluctuance, no induration Neurologic: AAOx3, sensation intact bilaterally Psychiatric: interacting appropriately, not anxious, not encephalopathic, thought process linear ICD10 Worksheet Patient Problems: Problems Problem Status Onset Hypokalemia due to loss of potassium Acute Acute dehydration Acute Diarrhea Acute Prolonged QT interval Acute
[2018-09-22] MEDS: ONDANSETRON 4 MG/2 ML VIAL IVP PRN (22:12)
[2018-09-23 05:20] LABS: PLATELET COUNT 569 10^3/uL (150-400)
[2018-09-23] MEDS: methylPREDNISolone SOD SUCC 40 MG/ML VIAL IVP SCH ×3 (06:11→21:52)
[2018-09-23] MEDS: MESALAMINE 800 MG TAB.DR PO SCH ×3 (08:28→21:51)
--- NOTE | 2018-09-23 11:00 | SOAPPROG ---
SNOW Progress Note Assessment/Plan: Assessment: Colitis suspect UC good response to steroids so far Plan: Await biopsy results Recommend another 24 hours of solumedrol and if continues to do well then change to prednisone possible tomorrow 09/22/18 09:48 09/23/18 10:56 Colitis overall better but with more nausea today, may be from too large fiber meal yesterday plan Rec another 24 hours of solumedrol Change to PO prednisone 40 mg daily tomorrow morning with taper by 10 mg every 10 days and stop Solumol Trial of PO Zofran If dose well then can D/C tomorrow F/U with GI in 4- 6 weeks Subjective: CC abd pain Overall much better except for more nausea today. Did eat large salad yesterday Objective: Vital Signs Temp Pulse Resp BP Pulse Ox 36.6 C 73 18 117/66 95 09/23/18 08:00 09/23/18 08:00 09/23/18 08:00 09/23/18 08:00 09/23/18 08:00 Laboratory Results 09/23/18 04:06 09/23/18 04:06 09/22/18 09/23/18 09/24/18 05:59 05:59 05:59 Intake Total 1695 3010 Balance 1695 3010 Physical Exam - Physical Exam General Appearance: alert Respiratory: lungs clear Cardiac/Chest: regular rate, rhythm Abdomen: non-tender, soft ICD10 Worksheet Patient Problems: Problems Problem Status Onset Acute dehydration Acute Diarrhea Acute Hypokalemia due to loss of potassium Acute Prolonged QT interval Acute
[2018-09-23] MEDS ORDERED: PROMETHAZINE HCL 25 MG TAB PO PRN (11:45)
--- NOTE | 2018-09-23 16:45 | HOSPPROG ---
Hospitalist Progress Note Assessment/Plan: * Colitis with bloody diarrhea - colonoscopy most c/w new diagnosis UC - biopsies pending -IV steroids + mesalamine -slow improvement - 1 more day IV steroids -likely discharge tomorrow on PO prednisone with taper per GI * Amoeba in stool -suspect non-pathogenic finding -PCR negative - this is more sensitive than O+P * Acute blood loss anemia -continue to follow H/H * Critical hypokalemia -improved - continue to follow * Prolonged QT -improved with electrolyte repletion * Leukocytosis -reactive * Syncope due to hypovolemia Subjective: Very nauseated today, but bloody diarrhea continues to improve Objective: Vital Signs Temp Pulse Resp BP Pulse Ox 36.6 C 79 18 116/75 99 09/23/18 16:00 09/23/18 16:00 09/23/18 16:00 09/23/18 16:00 09/23/18 16:00 Laboratory Results 09/23/18 04:06 09/23/18 04:06 09/22/18 09/23/18 09/24/18 05:59 05:59 05:59 Intake Total 1695 3010 720 Balance 1695 3010 720 - Physical Exam Constitutional: no apparent distress, appears nourished, not in pain Cardiovascular: regular rate and rhythym, no murmur, rub, or gallop Respiratory: no respiratory distress, no rales or rhonchi, clear to auscultation Gastrointestinal: normoactive bowel sounds, soft, non-tender abdomen, no palpable masses Skin: no rashes or abrasions, no fluctuance, no induration Neurologic: AAOx3, sensation intact bilaterally Psychiatric: interacting appropriately, not anxious, not encephalopathic, thought process linear ICD10 Worksheet Patient Problems: Problems Problem Status Onset Hypokalemia due to loss of potassium Acute Acute dehydration Acute Diarrhea Acute Prolonged QT interval Acute
--- NOTE | 2018-09-23 17:06 | ASMTCMCOM ---
CM Note CM Note Notes: Patient discussed during medical rounds, currently experiencing nausea and will likely discharge tomorrow home independently. CM to follow. Date Signed: 09/23/2018 05:05 PM Electronically Signed By:Germania Leon
[2018-09-23] MEDS: ONDANSETRON DISINTEGRATING 4 MG TAB PO PRN (21:51)
[2018-09-24 04:14] LABS: PLATELET COUNT 615 10^3/uL (150-400)
[2018-09-24] MEDS: methylPREDNISolone SOD SUCC 40 MG/ML VIAL IVP SCH (07:43)
[2018-09-24] MEDS: MESALAMINE 800 MG TAB.DR PO SCH (08:19)
[2018-09-24] MEDS: ONDANSETRON DISINTEGRATING 4 MG TAB PO PRN (08:19)
[2018-09-24] MEDS ORDERED: predniSONE 20 MG TAB PO SCH (09:00)
[2018-09-24 11:32] VITALS: BP 111/69
--- NOTE | 2018-09-24 12:08 | SOAPPROG ---
SNOW Progress Note Assessment/Plan: Assessment: Colitis suspect UC good response to steroids so far Plan: Await biopsy results Recommend another 24 hours of solumedrol and if continues to do well then change to prednisone possible tomorrow 09/22/18 09:48 09/23/18 10:56 Colitis overall better but with more nausea today, may be from too large fiber meal yesterday plan Rec another 24 hours of solumedrol Change to PO prednisone 40 mg daily tomorrow morning with taper by 10 mg every 10 days and stop Solumol Trial of PO Zofran If dose well then can D/C tomorrow F/U with GI in 4- 6 weeks 09/24/18 12:06 A/ Colitis much better ready to go home p/ OK to d/c home today Prednisone taper 40 mg taper by 10 mg daily Continue mesalamine at current dose Follow up with GI my office to arrange will sign off Subjective: cc bloody diarrhea overall much less diarrhea wants to go home Objective: Vital Signs Temp Pulse Resp BP Pulse Ox 36.6 C 80 16 111/69 96 09/24/18 11:31 09/24/18 11:31 09/24/18 11:31 09/24/18 11:31 09/24/18 11:31 Laboratory Results 09/24/18 03:32 09/24/18 03:32 09/23/18 09/24/18 09/25/18 05:59 05:59 05:59 Intake Total 3010 1220 Balance 3010 1220 Physical Exam - Physical Exam General Appearance: alert Respiratory: lungs clear Cardiac/Chest: regular rate, rhythm Abdomen: non-tender, soft ICD10 Worksheet Patient Problems: Problems Problem Status Onset Acute dehydration Acute Diarrhea Acute Hypokalemia due to loss of potassium Acute Prolonged QT interval Acute
--- NOTE | 2018-09-24 12:38 | PDDCSUM ---
Discharge Summary Discharge Summary: Date of Admission: 09/19/2018 Date of Discharge: 09/24/2018 Consultants: gastroenterology, infectious disease Procedures/Studies: 1. Colonoscopy - severe macias colitis. Biopsies of right colon, left colon, and rectum showed chronic active colitis with acute cryptitis, crypt abscess formation, and mucosal ulceration Discharge Diagnoses: 1. Acute colitis flare with biopsies most consistent with ulcerative colitis ( new diagnosis) 2. Acute blood loss anemia 2/2 hematochezia 3. Critical hypokalemia with ECG changes 4. Reactive leukocytosis and thrombocytosis 5. Syncope due to hypovolemia 6. Amoeba in stool, non-pathogenic Brief Hospital Course: 38yo generally healthy M presented from GI clinic after ongoing bloody stools ( 20-30 bloody BMs/day) and syncopal episode. Hematochezia started 09/03 and was being worked up in the outpatient setting. An amoeba was found on outpatient O+ P testing and he was started on metronidazole with no improvement. He was being seen in GI clinic and was reported to not be clinically well so sent to ED here where he was found to be significantly dehydrated with electrolyte derangements and anemia. GI was consulted who performed colonoscopy with biopsy most consistent with UC. He dramatically improved with initiation of systemic steroids and mesalamine and will be discharged on a prednisone taper with GI follow up. His H/H remained stable and his potassium levels normalized. He was tolerating a regular diet and no longer having hematochezia at discharge. In terms of the amoeba in his stool, ID was consulted who recommended performing Entamoeba histolytica PCR testing which was negative and is more sensitive than O+P. Thus, the amoeba found was felt to be non-pathogenic. Medications: Please refer to EMR for complete list. Changes this admission include addition of prednisone taper (40mg x10d, 30mg x10d, 20mg x10d, 10mg x10d ), mesalamine 1600mg TID, ODT zofran PRN. Follow Up Plan: 1. GI clinic visit with Dr Caicedo in 4-6 weeks 2. Establish with PCP Physical Exam: Vitals reviewed, afebrile and normotensive. Alert and oriented, RRR without m/r/g, lungs clear, abdomen soft and nontender, no rashes, no synovitis on joint exam.
--- NOTE | 2018-09-24 13:57 | ASDISCHSUM ---
Discharge Information Plan Status:Home with No Needs Medically Cleared to Leave:09/23/2018 Discharge Date:09/24/2018 01:50 PM CM D/C Disposition:Home, Routine, Self-Care ADT D/C Disposition:Home, Routine, Self-Care Projected Discharge Date:09/24/2018 01:50 PM Transportation at D/C:Family Discharge Delay Reason: Follow-Up Date:09/24/2018 01:50 PM Discharge Slot: Final Diagnosis: Placement Information Patient Contact Information Contact Name:TAMMIE Relationship: [address] [facility] City:[place] Alternate Phone: State/Zip Code:[place] [address] Email: Financial Information Financial Class:HMO and PPO Plans Primary Plan Desc:[employer] Primary Plan Number:[id number] Secondary Plan Desc: Secondary Plan Number: Assessment Information LACE LACE Length of stay for Answers: 3 days current admission Acuity / Level of Answers: Yes Care: Did the patient have an inpatient admission? Comorbidities - select Answers: Other Notes: hypokalemia, dehydratio n all that apply # of Emergency department Answers: 1-2 visits in the last 6 months Score: 8 Date Signed: 09/24/2018 01:55 PM Electronically Signed By:Raissa Joe RN [facility] CM Progress Note CM Note CM Note Notes: Pts case discussed in tx rounds. Pt is a 38 y/o man admitted for hypokalemia, bloodied diarrhea and dehydration. ID and GI are consulting. Needs are TBD at this time. CM to follow. Plan: TBD Date Signed: 09/20/2018 12:15 PM Electronically Signed By:ROBEL Hanson [facility] KATHERINE Progress Note CM Note CM Note Notes: Pts case discussed in tx rounds. Pt had a colonoscopy this AM. Pt most likely has ulcerative colitis. Awaiting from final results for a definitive diagnosis. Pt will be prescribed steroids to help w/ symptom management. Pt will most likely d/c independent when medically stable. No therapies ordered at this time. CM available for changes. Plan: Independent Date Signed: 09/21/2018 11:46 AM Electronically Signed By:ROBEL Hanson [facility] KATH[facility]INE Progress Note CM Note CM Note Notes: Patient discussed during medical rounds, currently experiencing nausea and will likely discharge tomorrow home independently. CM to follow. Date Signed: 09/23/2018 05:05 PM Electronically Signed By:Germania Leon Case Management Discharge Plan Note Case Management Discharge Discharge Order Complete? Answers: Yes Patient to Obtain Answers: via Family Medications Transportation Arranged Answers: Family/Friends Discharge Comments Notes: 09/24/2018 Case Management Note Pt discharged home independent with follow up as directed. Date Signed: 09/24/2018 01:56 PM Electronically Signed By:Raissa Joe RN Intervention Information
== END 2018-09-24 13:50 | disposition home or self-care (01) | DRG 386 ==
LOC: CED 09:42 → CEDHOLD 11:12 → F2W 12:50 → OBSVTOIN 09-20 14:09
PROVIDERS: ADMIT Internal Medicine; ATTEND Internal Medicine
PROC: 0DBE8ZX Excision of Large Intestine, Via Natural or Artificial Opening Endoscopic, Diagnostic (ICD-10-PCS; principal; 2018-09-21 08:15)
DX: K51.011 Ulcerative (chronic) pancolitis with rectal bleeding (principal); D62 Acute posthemorrhagic anemia; E87.6 Hypokalemia; E86.0 Dehydration; I45.81 Long QT syndrome; F17.220 Nicotine dependence, chewing tobacco, uncomplicated; Z23 Encounter for immunization
CPT/HCPCS: 80048-PO; 82435-PO; 82565-PO; 82947-PO; 84132-PO; 84295-PO; 84520-PO; 85014-PO; 87207-90; 96365; G0008; G0378; J2405; J2550; J2704; J2920; J3475; J3480; J7512